=== PATIENT | male | born 1995 | race Caucasian/White ===

== ENCOUNTER 2018-07-24 09:46 | Emergency (ER) | payer OTHER ==
[2018-07-24 09:59] VITALS: BP 128/70
--- NOTE | 2018-07-24 10:27 | ER Document Report ---
ED Medical Screen (RME) - General Chief Complaint: Fall Stated Complaint: FALL/SHOULDER, NECK PAIN Time Seen by Provider: 07/24/18 10:25 Mode of Arrival: Ambulatory Information source: Patient - HPI Patient complains to provider of: fall Onset: Just prior to arrival - pt. fell out of a tree just [employer] while doing yardwork. No LOC. C/o neck, L shoulder pain - Related Data Allergies/Adverse Reactions: sulfamethoxazole [From Bactrim] Allergy (Verified 07/24/18 09:50) trimethoprim [From Bactrim] Allergy (Verified 07/24/18 09:50) opiates Allergy (Uncoded 07/24/18 10:06) Dizziness Physical Exam - Vital signs Vitals: Temp Pulse Resp BP Pulse Ox 98.6 F 71 16 128/70 H 97 07/24/18 09:58 07/24/18 09:58 07/24/18 09:58 07/24/18 09:58 07/24/18 09:58 Course - Vital Signs Vital signs: Temp Pulse Resp BP Pulse Ox 98.6 F 71 16 128/70 H 97 07/24/18 09:58 07/24/18 09:58 07/24/18 09:58 07/24/18 09:58 07/24/18 09:58
--- NOTE | 2018-07-24 10:53 | RADIOLOGY REPORT (SQ) ---
EXAM DESCRIPTION: CERV SP 3 VIEW OR LESS COMPLETED DATE/TIME: 07/24/2018 10:39 am REASON FOR STUDY: fall COMPARISON: None. NUMBER OF VIEWS: Three views. TECHNIQUE: AP, lateral and odontoid radiographic images acquired of the cervical spine. LIMITATIONS: None. FINDINGS: MINERALIZATION: Normal. ALIGNMENT: There is straightening of cervical curvature likely due to muscle spasm. There is a lucen cy along the posterior elements at the C3-4 facet on lateral view, and questionable malalignment on t he left C3-4 facet on the frontal view. CT scanning of the cervical spine is recommended to exclude fracture. This report was discussed with Dr. Mac in the emergency room 07/24/2018, 1045 hours VERTEBRAE: Vertebral bodies of normal height. DISCS: Mild disc space narrowing at C4-5. Prior fusion at C5-6. HARDWARE: Fusion at C5-6 with anterior fixation plate, disc spacer and anterior screws SOFT TISSUES: No masses or calcifications. Lung apices clear. OTHER: No other significant finding. IMPRESSION: Question fracture left C3-4 facet region by plain film. Findings discussed with Dr. Wang ett. CT will be performed shortly. TECHNICAL DOCUMENTATION: JOB ID: [id number] [employer]- All Rights Reserved Reading location - IP/workstation name: [email or web address]
--- NOTE | 2018-07-24 10:55 | RADIOLOGY REPORT (SQ) ---
EXAM DESCRIPTION: SHOULDER LEFT 2 OR MORE VIEWS COMPLETED DATE/TIME: 07/24/2018 10:39 am REASON FOR STUDY: fall COMPARISON: None. NUMBER OF VIEWS: Three views. TECHNIQUE: Internal rotation, external rotation, and Y view images acquired of the left shoulder. LIMITATIONS: None. FINDINGS: MINERALIZATION: Normal. BONES: No acute fracture or dislocation. No worrisome bone lesions. JOINTS: No dislocation. VISUALIZED LUNGS AND RIBS: No pneumothorax. No rib fracture. SOFT TISSUES: No radiopaque foreign body. OTHER: No other significant finding. IMPRESSION: NEGATIVE STUDY OF THE LEFT SHOULDER. NO RADIOGRAPHIC EVIDENCE OF ACUTE INJURY. TECHNICAL DOCUMENTATION: JOB ID: [id number] [employer]- All Rights Reserved Reading location - IP/workstation name: [email or web address]
--- NOTE | 2018-07-24 11:40 | RADIOLOGY REPORT (SQ) ---
EXAM DESCRIPTION: CT CERVICAL SPINE WITHOUT COMPLETED DATE/TIME: 07/24/2018 11:08 am REASON FOR STUDY: fall COMPARISON: None. TECHNIQUE: Axial images acquired through the cervical spine without intravenous contrast. Images re viewed with lung, soft tissue and bone windows. Reconstructed coronal and sagittal MPR images review ed. Images stored on PACS. All CT scanners at this facility use dose modulation, iterative reconstruction, and/or weight based d osing when appropriate to reduce radiation dose to as low as reasonably achievable (ALARA). [facility]: Dose Right [facility]: CareDose [facility]: Dose Right [facility]: Teradose 4D [facility]: [employer] RADIATION DOSE: CT Rad equipment meets quality standard of care and radiation dose reduction techniq ues were employed. CTDIvol: 22.5 mGy. DLP: 588 mGy-cm. mGy. LIMITATIONS: None. FINDINGS: ALIGNMENT: Anatomic. MINERALIZATION: Normal. VERTEBRAL BODIES: No fractures or dislocation. DISCS: C4-5 disc space is narrowed. FACETS, LATERAL MASSES, POSTERIOR ELEMENTS: No fractures. No dislocation. No acute findings. HARDWARE: ACDF at C5-6. VISUALIZED RIBS: No fractures. LUNG APICES AND SOFT TISSUES: No significant or acute findings. OTHER: No other significant finding. IMPRESSION: Prior ACDF. Degenerative disc disease. No acute findings. TECHNICAL DOCUMENTATION: JOB ID: [id number] Quality ID # [id number]: Final reports with documentation of one or more dose reduction techniques (e.g., Au tomated exposure control, adjustment of the mA and/or kV according to patient size, use of iterative reconstruction technique) 2010 [employer]- All Rights Reserved Reading location - IP/workstation name: [email or web address]
--- NOTE | 2018-07-24 13:01 | ER Document Report ---
ED Fall - General Chief Complaint: Fall Stated Complaint: FALL/SHOULDER, NECK PAIN Time Seen by Provider: 07/24/18 10:25 Mode of Arrival: Ambulatory Information source: Patient Notes: 23-year-old male presents emergency department status post fall. Patient states that he was in a tree when he fell out of the tree onto a roof. Patient states that he landed on his left shoulder. Patient states that he fell approximately 6-7 feet. Patient denies any head injury or loss of consciousness. Patient states that immediately he was having left shoulder pain. He felt like he dislocated his left shoulder. Patient also has a history of C4 fusion. He was concerned about possible neck injury. Patient denies any vision changes, speech changes, numbness, tingling, weakness. Patient denies taking any medication prior to arrival. - HPI Occurred: Just prior to arrival Where: Home Associated symptoms: None Location of injury/pain: Shoulder Quality of pain: Throbbing - Related data Allergies/Adverse Reactions: sulfamethoxazole [From Bactrim] Allergy (Verified 07/24/18 09:50) trimethoprim [From Bactrim] Allergy (Verified 07/24/18 09:50) opiates Allergy (Uncoded 07/24/18 10:06) Dizziness Past Medical History - General Information source: Patient - Social History Smoking Status: Current Every Day Smoker Chew tobacco use (# tins/day): No Frequency of alcohol use: None Drug Abuse: None Family History: Reviewed & Not Pertinent Patient has suicidal ideation: No Patient has homicidal ideation: No Neurological Medical History: Reports: Hx Seizures Renal/ Medical History: Denies: Hx Peritoneal Dialysis Past Surgical History: Reports: Hx Orthopedic Surgery - neck X 6, nose, Hx Tonsillectomy Review of Systems - Review of Systems Constitutional: No symptoms reported EENT: No symptoms reported Cardiovascular: No symptoms reported Respiratory: No symptoms reported Gastrointestinal: No symptoms reported Musculoskeletal: Joint pain, Muscle pain Skin: No symptoms reported Neurological/Psychological: No symptoms reported -: Yes All other systems reviewed and negative Physical Exam - Vital signs Vitals: Temp Pulse Resp BP Pulse Ox 98.6 F 71 16 128/70 H 97 07/24/18 09:58 07/24/18 09:58 07/24/18 09:58 07/24/18 09:58 07/24/18 09:58 - General Notes: PHYSICAL EXAMINATION: GENERAL: Well-appearing, well-nourished and in no acute distress. HEAD: Atraumatic, normocephalic. EYES: Pupils equal round and reactive to light, extraocular movements intact, sclera anicteric, conjunctiva are normal. ENT: Nares patent, oropharynx clear without exudates. Moist mucous membranes. NECK: Normal range of motion, supple without lymphadenopathy LUNGS: Breath sounds clear to auscultation bilaterally and equal. No wheezes rales or rhonchi. HEART: Regular rate and rhythm without murmurs ABDOMEN: Soft, nontender, nondistended abdomen. No guarding, no rebound. No masses appreciated. Musculoskeletal: Tenderness to palpation of the left shoulder. Decreased range of motion secondary to pain. 2+ radial pulse. NEUROLOGICAL: Cranial nerves grossly intact. Normal speech, normal gait. Normal sensory, motor exams PSYCH: Normal mood, normal affect. SKIN: Warm, Dry, normal turgor, no rashes or lesions noted. Course - Re-evaluation Re-evalutation: 07/24/18 12:59 X-ray of the cervical spine and shoulder were done. CT of the neck was ordered as there is some abnormalities on the x-ray. No acute process was seen in either the shoulder or the CT cervical spine. I discussed the results with the patient. He states that he takes narcotic pain medication for his neck already at home. He states that he does not need the pain medication prescription. Patient instructed to continue taking his medication as directed, to follow-up with his primary care physician this week, and to return to the emergency department if he is having any worsening symptoms. Patient is agreeable to plan of care. - Vital Signs Vital signs: Temp Pulse Resp BP Pulse Ox 98.6 F 71 16 128/70 H 97 07/24/18 09:58 07/24/18 09:58 07/24/18 09:58 07/24/18 09:58 07/24/18 09:58 Discharge - Discharge Clinical Impression: Shoulder pain, acute Qualifiers: Laterality: left Qualified Code(s): M25.512 - Pain in left shoulder Condition: Good Disposition: HOME, SELF-CARE Instructions: Shoulder Injury ([facility]) Referrals: MANUELA MONTE MD [ACTIVE STAFF] - Follow up as needed
== END 2018-07-24 13:06 | disposition home or self-care (01) ==
LOC: ER 09:46
DX: M25.512 Pain in left shoulder (principal); W14.XXXA Fall from tree, initial encounter; Y92.009 Unspecified place in unspecified non-institutional (private) residence as the place of occurrence of the external cause; M54.2 Cervicalgia; Z79.891 Long term (current) use of opiate analgesic; Z98.1 Arthrodesis status; F17.200 Nicotine dependence, unspecified, uncomplicated; Z88.1 Allergy status to other antibiotic agents; Z88.5 Allergy status to narcotic agent
CPT/HCPCS: 72040; 72125; 99284